=== PATIENT | female | born 1955 | race Hispanic/Latino ===

== ENCOUNTER 2019-03-11 06:09 | Day surgery (SDC) | payer MEDICARE, MEDICAID ==
[2019-03-09 11:43] VITALS: BP 101/53
[2019-03-09 11:47] LABS: APPEARANCE,URINE CLEAR (CLEAR); BILIRUBIN,URINE NEGATIVE (NEGATIVE); COLOR,URINE YELLOW (YELLOW); GLUCOSE, URINE (UA) 500 mg/dL (NEGATIVE); KETONES,URINE NEGATIVE (NEGATIVE); LEUKOCYTE ESTERASE ,URINE NEGATIVE (NEGATIVE); NITRATE,URINE NEGATIVE (NEGATIVE); OCCULT BLOOD,URINE TRACE-INTACT (NEGATIVE); PH,URINE 5.5 (5.0-8.0); PROTEIN,URINE 100 mg/dL (NEGATIVE); UROBILINOGEN,URINE 0.2 mg/dL (0.2-1.0)
[2019-03-09 11:47] LABS: BASOPHILS % (AUTO) 0.5 % (0.0-5.0); EOSINOPHILS % (AUTO) 1.1 % (0.0-8.0); HEMATOCRIT 29.6 % (36-48); LYMPHOCYTES % (AUTO) 9.3 % (21.0-51.0); MEAN CORPUSCULAR HEMOGLOBIN 29.3 pg (27.0-33.0); MEAN CORPUSCULAR HGB CONC 32.4 g/dL (32.0-36.0); MEAN CORPUSCULAR VOLUME 90.3 fL (79-99); MONOCYTES % (AUTO) 8.2 % (3.0-13.0); NEUTROPHILS % (AUTO) 80.9 % (40.0-77.0); PLATELET COUNT (AUTO) 197 K/uL (130-400); RED BLOOD CELL COUNT(AUTO) 3.28 MIL/uL (4.00-5.50); WHITE BLOOD COUNT (AUTO) 8.5 K/uL (4.8-10.8)
[2019-03-09 11:55] LABS: POTASSIUM 4.2 mmol/L (3.5-5.1)
[2019-03-09 12:03] LABS: BACTERIA,URINE Rare /HPF (None Seen); MUCUS,URINE Rare LPF (None Seen); RBC,URINE 0-1 /HPF (0-1); SQUAMOUS EPITHELIAL CELL,UR Rare /HPF (0-2); WBC,URINE 0-1 /HPF (0-1)
[2019-03-09 12:08] LABS: INR 1.03 (0.85-1.15); PARTIAL THROMBOPLASTIN TIME 28.5 SEC (26.3-35.5); PROTHROMBIN TIME 10.8 SEC (9.6-11.6)
--- NOTE | 2019-03-09 14:00 | NUR ---
CRITICAL LAB BUN 71 CREAT 14.0 SPOKE WITH ELEUTERIO SPAULDING OFFICE AND FAXED RESULTS TO [id number]
--- NOTE | 2019-03-10 10:46 | NUR ---
LABS SPOKE TO DR. JASSON COOK ASST IN REGARDS TO BUN/ CREA/H/H FAXED AND REPORTED YESTERDAY. PER DR. SPAULDING, PROCEED WITH PLANNED PROCEDURE. NO ORDERS RECEIVED.
[~2019-03-11] VITALS: Ht 157.5 cm; Wt 66.8 kg
[2019-03-11] VITALS (11 sets, daily range): BP systolic 105–135; BP diastolic 58–62
[~2019-03-11 06:09] MED LIST: ACETAMINOPHEN; ASPI-555 PO; BRIM10DR16 OP; CALC0.5C11 PO; CALC667T5 PO; CARV25TA PO; CLOP75TA32 PO; CODEINE; DORZ1DRO7 OP; HUM10VIA SQ; HYDR-3421 PO; METO-391 PO; OMEP20CA10 PO; SEVE800T27 PO; SODIUM CHLORIDE 0.9% 500ML 500 ML IV SCH
[2019-03-11] MEDS ORDERED: SODIUM CHLORIDE 0.9% 1000ML 1,000 ML IV ONE (06:16)
[2019-03-11] MEDS ORDERED: ACET1TAB25 PO (06:51)
[2019-03-11] MEDS ORDERED: HEPARIN SODIUM 1000UNIT/ML 10ML VIAL ONE (07:13)
[2019-03-11] MEDS ORDERED: IOHEXOL-350 50ML VIAL IV ONE (07:13)
[2019-03-11] MEDS ORDERED: LIDOCAINE HCL 2% 20ML ONE (07:14)
[2019-03-11] MEDS ORDERED: IOHEXOL 350 MG/ML 100ML INFUS..BTL IV ONE (07:14)
--- NOTE | 2019-03-11 07:14 | NUR ---
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 FAMILY AT BEDSIDE
[2019-03-11] MEDS ORDERED: MIDAZOLAM HCL 1 MG/ML 2ML VIAL ONE (07:36)
[2019-03-11] MEDS ORDERED: DEXTROSE 50%-WATER 50 ML DISP.SYRIN IV PRN (09:00)
[2019-03-11] MEDS ORDERED: GLUCAGON 1MG KIT 1 MG ML IM PRN (09:00)
--- NOTE | 2019-03-11 09:15 | NUR ---
POST RECEIVED PT FROM [employer], S/P LHC, RIGHT GROIN DRESSING DRY AND INTACT, (UNSUCCESSFUL ATTEMPT TO DO LHC VIA RIGHT FEMORAL ARTERY). RIGHT BRACHIAL DSTAT-DRESSING DRY AND INTACT, SEE POST CATH ASSESSMENT. PT ARRIVED ANXIOUS. MOVING ALL OVER BED, STATES "FEELS ANXIOUS. PT HAS HX ANXIETY, PT AND SPOUSE INSTRUCTED TO KEEP BEDREST FOR 4 HRS. PLAN OF CARE DISCUSS WITH PATIENTS SPOUSE, PT MOVING RIGHT ARM AND RIGHT LEG, PT BEING NON COMPLIANT WITH INSTRUCTIONS GIVEN. VS STABLE ON ARRIVAL . DR Chucho SPAULDING SPOKE TO PTS SPOUSE ABOUT LHC FINDINGS AND PLAN OF CARE. WILLL CONTINUE TO MONITOR
--- NOTE | 2019-03-11 14:00 | NUR ---
PROCEDURE 2D ECHO DONE AT BEDSIDE.
--- NOTE | 2019-03-11 14:40 | NUR ---
DC DC INSTRUCTIONS GIVEN TO PATIENTS SPOUSE, INSTRUCTED TO FOLLOW UP WITH DR. Tere SCHULTZ AND DR. WILD . RIGHT BRACHIAL DSTAT DRESSING DRY AND INTACT TO SITE. PIV REMOVED TO LEFT HAND CATHETER INTACT, SITE ASYMPTOMATIC, PT WILL GET DRESS AND THEN DC HOME. WILL FOLLOW UP AN OUTPT WITH DR. Tere SCHULTZ PER HIS ORDERS
--- NOTE | 2019-03-11 15:09 | NUR ---
dc pt dc home via wc,no distress noted. denies any pain or discomforts. right groin dressing dry and intact. right brachial dstat dressing dry and intact. patient accompanied by spouse
== END 2019-03-11 15:09 | disposition home or self-care (01) ==
LOC: DAH 06:09
PROVIDERS: ATTEND Internal Medicine Cardiovascular Disease
DX: I35.0 Nonrheumatic aortic (valve) stenosis (principal); I25.10 Atherosclerotic heart disease of native coronary artery without angina pectoris; I13.2 Hypertensive heart and chronic kidney disease with heart failure and with stage 5 chronic kidney disease, or end stage renal disease; I50.89 Other heart failure; E11.22 Type 2 diabetes mellitus with diabetic chronic kidney disease; N18.6 End stage renal disease; I42.0 Dilated cardiomyopathy; E78.5 Hyperlipidemia, unspecified; Z79.01 Long term (current) use of anticoagulants; Z79.4 Long term (current) use of insulin; Z79.899 Other long term (current) drug therapy; F15.90 Other stimulant use, unspecified, uncomplicated; Z79.82 Long term (current) use of aspirin; Z98.49 Cataract extraction status, unspecified eye; Z98.890 Other specified postprocedural states; Z99.2 Dependence on renal dialysis; Z83.3 Family history of diabetes mellitus
CPT/HCPCS: 36415; 71045; 80048; 81001; 82948 ×2; 85025; 85610; 85730; 93005; 93306; 93458; A4606; C1769 ×2; C1894 ×2; J1644 ×2; J2250; J3490; J7030; Q9965; Q9967; 99156; 99157